=== PATIENT | female | born 1995 | race Caucasian/White ===

== ENCOUNTER 2016-05-22 15:58 | Emergency (ER) | payer OTHER ==
[~2016-05-22 15:58] MED LIST: MACR100C PO; PRENCAP10 PO
[2016-05-22 16:26] VITALS: BP 124/82; PULSE 108
[2016-05-22 16:30] VITALS: BP 120/76; PULSE 105
[2016-05-22 16:45] VITALS: BP 119/89; PULSE 105
[2016-05-22] MEDS ORDERED: MULTTAB20 PO (16:47)
--- NOTE | 2016-05-22 16:49 | PD.CONS ---
HPI Chief Complaint "pause in heartbeat" by intel recruiter Date Seen: May 22, 2016 Time Seen: 16:30 Travel History International Travel<30 Days: No Contact w/Intl Traveler<30Days: No History of Present Illness HPI 21 year-old at 40/2, with EDC 05/20/16 by first trimester ultrasound in [place] ED presents to OB ED after being told by [employer] recruiter that there was a " pause in heartbeat". She is feeling baby move and denies vaginal bleeding, loss of fluid, or contractions. is complicated by lack of pre- care- she saw Brittnee Gamboa once at the end of April in addition to two ED visits in October 2015. She endorses marijuana use during to help stimulate her appetite. Denies BILLINGSLEY, shortness of breath, chest pain, leg pain. States she is GBS+ but we do not have documentation of this Para: 0 : 1 Miscarriage: 0 : 0 History Past Medical History Medical History: Denies Significant Hx Obstetric History Obstetric History Past Surgical History Surgical History: No Previous Surgery Family History Narrative Family History Negative for bleeding disorders or problems with anesthesia Family History: Negative Social History Alcohol Use: No Tobacco Use: No Substance Abuse: Yes (Marijuanna use) Allergies-Medications (Allergen,Severity, Reaction): Coded Allergies: No Known Allergies (Unverified , 05/22/16) Home Meds Reported Medications Vit W/ Ferrous Fumara (Multi 27-0.8 mg)1 Tab Tab1 Tab PO DAILY 05/22/16 Discontinued Scripts Vit W/ Ferrous Fumara ( Multi +Dha)+ Cap1 Cap PO DAILY 30 Days Prov:Abraham Jerome MD 10/02/15 Review of Systems Except as stated in HPI: all other systems reviewed are Neg Physical Exam Narrative CONST: Adult female in NAD DERM: Warm and dry. HEENT: PERRL. MMM NECK: Supple, trachea midline. No JVD. CV: RRR. No murmurs. RESPIRATORY: Breathing well on RA GI: Abd soft, non-tender : External Genitalia: intact and normal in appearance. Cervix closed/thick/ high. Membranes intact. FHT's: Category: 1 Baseline: 120 Reactive: Yes, to 150 Variability: Moderate Decels: Multiple decels, approx q10m, no read pattern with minimal contractions No contractions- minor irritability EXTREMITIES: No cyanosis or edema. BACK: Nontender without obvious deformity. No CVA tenderness. NEURO: Five out of 5 muscle strength in all muscle groups Data Data Vital Signs Reviewed: Yes MDM Medical Record Reviewed: Yes Plan 21y at 40/2 (by EDC 05/20/16 by FTUS in [place] ED) presents to OB ED after being told by [employer] recruiter that there was a "pause in heartbeat" 1. Intrauterine , 40 weeks -Continuous monitoring -Tracing originally with minimal variability, will hydrate mother and re- evaluate- if Category I discharge with reassurance. -Due to repeated variables, POC OB US ordered to assess YOHANA- if wnl, discharge with reassurance. If <7 or other abnormalities visualized, admit for labor -Maternal vitals reassuring 2. Marijuana use during -Cessation counseling provided 3. GBS+ -Attempt to obtain records from Brittnee Gamboa prior to delivery SDW: Dr. Bowden, Dr Kong Diagnosis: False Labor at 40 weeks, Marijuana Use Disposition: 01 DISCHARGE HOME Condition: Stable Flory Romero MD R1 May 22, 2016 16:49
[2016-05-22 17:00] VITALS: BP 130/89; PULSE 91
--- NOTE | 2016-05-22 17:08 | PD ---
History of Present Illness Date Seen: May 22, 2016 Time Seen: 17:04 History of Present Illness HPI Chief Complaint "pause in heartbeat" by field service engineer Date Seen: May 22, 2016 Time Seen: 16:30 Travel History International Travel<30 Days: No Contact w/Intl Traveler<30Days: No History of Present Illness HPI 21 year-old at 40/2, with EDC 05/20/16 by first trimester ultrasound in [place] ED presents to OB ED after being told by field service engineer that there was a " pause in heartbeat". She is feeling baby move and denies vaginal bleeding, loss of fluid, or contractions. is complicated by lack of pre- care- she saw Brittneeanita Gamboa once at the end of April in addition to two ED visits in October 2015. She endorses marijuana use during to help stimulate her appetite. Denies BILLINGSLEY, shortness of breath, chest pain, leg pain. States she is GBS+ but we do not have documentation of this Para: 0 : 1 Miscarriage: 0 : 0 History (Limited) History Past Medical History Medical History: Denies Significant Hx Obstetric History Obstetric History Past Surgical History Surgical History: No Previous Surgery Family History Narrative Family History Negative for bleeding disorders or problems with anesthesia Family History: Negative Social History Alcohol Use: No Tobacco Use: No Substance Abuse: Yes (Marijuanna use) Allergies-Medications Allergies-Medications (Allergen,Severity, Reaction): Coded Allergies: No Known Allergies (Unverified , 05/22/16) Home Meds Reported Medications Vit W/ Ferrous Fumara (Multi 27-0.8 mg)1 Tab Tab1 Tab PO DAILY 05/22/16 Discontinued Scripts Vit W/ Ferrous Fumara ( Multi +Dha)+ Cap1 Cap PO DAILY 30 Days Prov:Abraham Jerome MD 10/02/15 ROS Review of Systems Except as stated in HPI: all other systems reviewed are Neg Physical Exam Physical Exam Narrative CONST: Adult female in NAD DERM: Warm and dry. HEENT: PERRL. MMM NECK: Supple, trachea midline. No JVD. CV: RRR. No murmurs. RESPIRATORY: Breathing well on RA GI: Abd soft, non-tender : External Genitalia: intact and normal in appearance. Cervix closed/thick/ high. Membranes intact. FHT's: Category: 1 Baseline: 120 Reactive: Yes, to 150 Variability: Moderate Decels: Multiple decels, approx q10m, no read pattern with minimal contractions No contractions- minor irritability EXTREMITIES: No cyanosis or edema. BACK: Nontender without obvious deformity. No CVA tenderness. NEURO: Five out of 5 muscle strength in all muscle groups Data Data Data Vital Signs Reviewed: Yes Problem List: (1) Limited care, antepartum (2) Marijuana use (3) 40 weeks gestation of Assessment and Plan [facility] Medical Record Reviewed: Yes Plan 21y at 40/2 (by EDC 05/20/16 by FTUS in [place] ED) presents to OB ED after being told by field service engineer that there was a "pause in heartbeat" 1. Intrauterine , 40 weeks -Continuous monitoring -Tracing originally with minimal variability, will hydrate mother and re- evaluate -Due to repeated variables, POC OB US ordered to assess YOHANA- fluid level was reassuring- pt discharged home with reassuring -Maternal vitals reassuring 2. Marijuana use during -Cessation counseling provided 3. GBS+ -Attempt to obtain records from Brittnee Gamboa prior to delivery SDW: Dr. Bowden, Flory Lnaier MD R1 May 22, 2016 17:08 Flory Romero MD R1 May 22, 2016 17:08
--- NOTE | 2016-05-22 17:56 | PD ---
HPI Chief Complaint irregular heart rate heard at the clinic Date Seen: May 22, 2016 Travel History International Travel<30 Days: No Contact w/Intl Traveler<30Days: No History of Present Illness HPI This patient is a 21-year-old white female at 40 weeks gestation is followed by Brittnee Gamboa at her medical record administrator clinic area and she presents for irregular heart rate noted in the Doppler in the office today. He has no complaints or problems no bleeding leakage or contractions noted. Her baby is active according to the patient and her heart rate tracing is reactive for several small variables noted but otherwise the strip was very reactive. Para: 0 : 1 History Past Medical History Medical History: Denies Significant Hx Social History Alcohol Use: No Tobacco Use: No Substance Abuse: No Allergies-Medications (Allergen,Severity, Reaction): Coded Allergies: No Known Allergies (Unverified , 05/22/16) Home Meds Reported Medications Vit W/ Ferrous Fumara (Multi 27-0.8 mg)1 Tab Tab1 Tab PO DAILY 05/22/16 Discontinued Scripts Vit W/ Ferrous Fumara ( Multi +Dha)+ Cap1 Cap PO DAILY 30 Days Prov:Abraham Jerome MD 10/02/15 Review of Systems General / Constitutional: No: Fever, Weight Gain, Chills, Other Eyes: No: Diploplia, Blurred Vision, Visual changes, Pain, Photophobia HENT: No: Headaches, Vertigo, Lightheadedness Cardiovascular: No: Irregular Rhythm, Chest Pain or Discomfort, Palpitations, Tachycardia, Syncope, Varicosities, Edema, Cyanosis Respiratory: No: Cough, Short of Breath, Other Gastrointestinal: No: Nausea, Vomiting, Diarrhea Genitourinary: No: Decreased Urinary Output, Oliguria Musculoskeletal: No: Limited ROM, Weakness, Cramping, Edema, Pain Skin: No Rash, No Itching, No Dryness, No Lumps, No Change in Pigmentation, No Change in Nails, No Alopecia, No Lesions Neurologic: No: Weakness, Dizziness, Syncope, Focal Abnormalities, Coordination Problem, Headache, Slurred Speech, Seizures Psychiatric: No: Depression, Suicidal Ideations, Homicidal Ideation Endocrine: No: Heat Intolerance, Cold Intolerance, Polydipsia, Polyuria, Other Physical Exam Narrative GENERAL: Well-nourished, well-developed patient. SKIN: Warm and dry. HEAD: Normocephalic and atraumatic. EYES: No scleral icterus. No injection or drainage. ENT: No nasal drainage noted. Mucous membranes pink. Airway patent. NECK: Supple, trachea midline. No JVD. CARDIOVASCULAR: Regular rate and rhythm without murmurs, gallops, or rubs. RESPIRATORY: Breath sounds equal bilaterally. No accessory muscle use. BREASTS: Bilateral exam showed no masses , no retractions, no nipple discharge. ABDOMEN/GI: Abdomen soft, non-tender, bowel sounds present, no rebound, no guarding Gravid to [-38] weeks size Fundal Height: [-38 cm] GENITOURINARY: External Genitalia: intact and normal in appearance BUS glands: [-] Cervix: [-] Closed Dilatation: [-] Closed Effacement: [-] Thick Station: [-3] Presentation: [-vtx] Membranes: [intact ] Uterine Contractions: [Occasional-] FHT's: Category: 1[-] Baseline: [144-] Reactive: [yes-] Variability: [mod-] Decels: [-] Several variable decelerations noted the first 3045 minute she' s on the monitor did not repeat themselves EXTREMITIES: No cyanosis or edema. BACK: Nontender without obvious deformity. No CVA tenderness. NEUROLOGICAL: Awake and alert. Motor and sensory grossly within normal limits. Five out of 5 muscle strength in all muscle groups. Normal speech. Data Data Orders Vital Signs (Adult) .ON ADMISSION (05/22/16 16:43) ^ Labor Status (05/22/16 16:43) ^ Hydration (05/22/16 16:43) Ob Poc Ultrasound (05/22/16 ) Labs Because the patient had several variables we did a biophysical profile and ultrasound evaluation fluid volume. Amniotic fluid volume was adequate 40 weeks , biophysical profile was 8 of 8 and growth parameters measured head belly and leg consistent with term size fetus in a vertex presentation placenta posterior grade 2 MDM Interpretation(s) Patient is a 40 week primiparous patient with slightly irregular heart rate Dopplers in the office sent over here and noted to have an and reactive NST and a normal biophysical profile. To be discharged and followed up with her Plan Plan for the patient be discharged today with the information on kick counts she said the baby is very active all time. And she is to follow-up with Brittnee Gamboa in the office for repeat evaluation as scheduled Diagnosis Diagnosis: Primary Impression: heart rate/rhythm abnormality, antepartum Disposition: 01 DISCHARGE HOME Condition: Stable Esteban Bowden II, MD May 22, 2016 17:56
== END 2016-05-22 18:04 | disposition home or self-care (01) ==
LOC: HOBED 15:58
DX: O76 Abnormality in fetal heart rate and rhythm complicating labor and delivery (principal); O09.33 Supervision of pregnancy with insufficient antenatal care, third trimester; F12.90 Cannabis use, unspecified, uncomplicated; Z3A.40 40 weeks gestation of pregnancy
CPT/HCPCS: 59025